=== PATIENT | male | born 1960 ===

== ENCOUNTER 2020-03-01 18:00 | Inpatient (IN) | payer OTHER ==
[2020-03-01 20:48] LABS: Basophils # (Auto) 0.1 K/mm3 (0.0-0.1); Basophils % (Auto) 0.3 % (0.0-1.8); Eosinophils % (Auto) 0.2 % (0.0-4.3); Hematocrit 45.1 % (35.5-45.6); Hemoglobin 15.5 gm/dl (11.8-15.2); Lymphocytes # (Auto) 1.2 K/mm3 (1.2-5.4); Mean Corpuscular HGB Conc 34 % (32-34); Mean Corpuscular Volume 91 fl (84-94); Monocytes # (Auto) 1.2 K/mm3 (0.0-0.8); Monocytes % (Auto) 6.8 % (0.0-7.3); Platelet Count 181 K/mm3 (140-440); Red Blood Count 4.96 M/mm3 (3.65-5.03); Red Cell Distribution Width 12.9 % (13.2-15.2)
[2020-03-01 21:02] LABS: Alanine Aminotransferase 43 units/L (7-56); Albumin 4.6 g/dL (3.9-5); Blood Urea Nitrogen 21 mg/dL (9-20); Calcium 9.9 mg/dL (8.4-10.2); Hemolysis Index 6
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
[2020-03-01 21:14] LABS: BUN/Creatinine Ratio 35
[2020-03-02] MEDS ORDERED: MORPHINE 2 MG/1 ML INJ IV ONE (00:33)
[2020-03-02] MEDS ORDERED: ONDANSETRON 4 MG/2 ML INJ IV ONE (00:33)
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
[2020-03-02] MEDS ORDERED: DEXTROSE 50% IN WATER (25GM) 50 ML SYRINGE IV PRN (04:07)
[2020-03-02] MEDS ORDERED: ACETAMINOPHEN 325 MG TAB PO PRN (04:07)
[2020-03-02] MEDS ORDERED: MAGNESIUM HYDROXIDE (MOM) ORAL LIQD UDC PO PRN (04:07)
[2020-03-02] MEDS ORDERED: ONDANSETRON 4 MG/2 ML INJ IV PRN (04:07)
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
--- NOTE | 2020-03-02 04:28 | XRay Report ---
CHEST 1 VIEW INDICATION: Trauma. COMPARISON: None FINDINGS: SUPPORT DEVICES: None. HEART: Within normal limits. LUNGS/PLEURA: No acute air space or interstitial disease. ADDITIONAL FINDINGS: None. IMPRESSION: 1. No acute findings. Signer Name: Mikal Aggarwal MD Signed: 03/02/2020 4:24 AM Workstation Name: [id number]
[2020-03-02 05:18] LABS: INR 1.07 (0.87-1.13)
[2020-03-02 05:19] LABS: Partial Thromboplastin Time 28.6 Sec. (24.2-36.6)
[2020-03-02] MEDS: INSULIN LISPRO 100 UNIT/ML VIAL 3 mL SUB-Q SCH ×4 (07:53→22:35)
[2020-03-02] MEDS: MORPHINE 2 MG/1 ML INJ IV PRN ×3 (11:58→22:28)
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
[2020-03-02] MEDS: SODIUM CHLORIDE 0.9% 1000 ML 1,000 ML IV SCH (22:31)
[2020-03-03] MEDS: MORPHINE 2 MG/1 ML INJ IV PRN (03:29)
[2020-03-03] MEDS: INSULIN LISPRO 100 UNIT/ML VIAL 3 mL SUB-Q SCH ×4 (07:44→21:21)
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
[2020-03-04] MEDS: SODIUM CHLORIDE 0.9% 1000 ML 1,000 ML IV SCH ×2 (08:30→17:43)
[2020-03-04] MEDS: MORPHINE 2 MG/1 ML INJ IV PRN ×2 (09:57→17:38)
[2020-03-04] MEDS: INSULIN LISPRO 100 UNIT/ML VIAL 3 mL SUB-Q SCH ×5 (09:57→23:15)
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
[2020-03-05] MEDS: SODIUM CHLORIDE 0.9% 1000 ML 1,000 ML IV SCH (03:57)
[2020-03-05] MEDS: MORPHINE 2 MG/1 ML INJ IV PRN ×2 (06:08→10:20)
[2020-03-05 06:10] LABS: Basophils % (Auto) 0.7 % (0.0-1.8); Eosinophils # (Auto) 0.1 K/mm3 (0.0-0.4); Eosinophils % (Auto) 2.1 % (0.0-4.3); Hematocrit 36.8 % (35.5-45.6); Lymphocytes # (Auto) 1.2 K/mm3 (1.2-5.4); Lymphocytes % (Auto) 17.3 % (13.4-35.0); Mean Corpuscular HGB Conc 35 % (32-34); Mean Corpuscular Volume 90 fl (84-94); Monocytes # (Auto) 0.8 K/mm3 (0.0-0.8); Monocytes % (Auto) 11.9 % (0.0-7.3); Platelet Count 143 K/mm3 (140-440); Red Blood Count 4.08 M/mm3 (3.65-5.03); Red Cell Distribution Width 12.9 % (13.2-15.2)
[2020-03-05 06:23] LABS: Blood Urea Nitrogen 14 mg/dL (9-20); Calcium 8.5 mg/dL (8.4-10.2); Hemolysis Index 4
[2020-03-05 06:34] LABS: BUN/Creatinine Ratio 23
[2020-03-05] MEDS: INSULIN LISPRO 100 UNIT/ML VIAL 3 mL SUB-Q SCH ×2 (07:45→11:49)
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
[2020-03-05 12:50] VITALS: BP 158/80
== END 2020-03-05 18:20 | disposition home or self-care (01) | DRG 563 ==
LOC: ED 18:00 → 3B-SURG 03-02 03:33
PROVIDERS: ADMIT Internal Medicine Geriatric Medicine; ATTEND Internal Medicine
DX: S82.831A Other fracture of upper and lower end of right fibula, initial encounter for closed fracture (principal); S32.591A Other specified fracture of right pubis, initial encounter for closed fracture; S32.9XXA Fracture of unspecified parts of lumbosacral spine and pelvis, initial encounter for closed fracture; E11.9 Type 2 diabetes mellitus without complications; I10 Essential (primary) hypertension; V03.10XA Pedestrian on foot injured in collision with car, pick-up truck or van in traffic accident, initial encounter; Y93.89 Activity, other specified; Y92.410 Unspecified street and highway as the place of occurrence of the external cause; Z79.4 Long term (current) use of insulin
CPT/HCPCS: 36415; 71045; 74177; 80048; 80053; 82962; 85025; 85610; 85730; 93005; 96361; 96365; 96366; 96367; 96375; 96376; G0378; J1815; J2270; J2405; J7030; Q9967